=== PATIENT | male | born 1950 | race Caucasian/White ===

== ENCOUNTER → 2018-09-06 | Outpatient (CLI) | payer BC, SELFPAY ==
--- NOTE | 2018-09-06 12:31 | STEWCON_ITS ---
Reason For Study: ABN. EKG Stress Results Protocol: Abhinav Protocol WITH DEFINITY Maximum Predicted HR: 154 bpm Target HR: 131 bpm % Maximum Predicted HR: 95 % DurationHeart Rate Stage (mm:ss) (bpm) BP Comment BASELINE 97 162/801 CC DEFINITY STAGE 1 3:00 118 182/80 STAGE 2 3:00 131 210/78 STAGE 3 3:00 142 210/70 STAGE 4 1:00 146 / 1 CC DEFINITY, SLIGHT WINDED RECOVERY 104 160/100 Stress Duration: 10:00 mm:ss Maximum Stress HR: 146 bpm METS: 13 Baseline Echocardiogram Findings Stress Echo Wall motion Data Resting WM Intermediate WM Stress WM Resting Wall Motion Wall Motion Stress All segments Normal. All segments Hyperkinetic. Ejection Fraction 65 %. Ejection Fraction 75 %. Stress Results Heart rate response: Appropriate Blood pressure response: Resting hypertension-exaggerated response Arrhythmias: Isolated PVC during recovery Functional capacity: Good Stopped: Secondary to dyspnea. EKG Data The baseline ECG displays normal sinus rhythm. Peak exercise ECG with continued nonspecific ST/T wave abnormality. Symptoms with Stress No complaint of chest discomfort during exercise or recovery. Interpretation Summary Technically difficult study Contrast injection performed Secondary to technical difficulties the post stress images were not successfully captured for post stress image interpretation, however, based upon real-time visualization of the post stress images there appeared to be no obvious evidence of post stress induced regional wall motion abnormalities. Negative (Adequate) stress echocardiogram Ordering Physician: Trell Coello Referring Physician: Trell Coello Performed By: Inez Scott, MARISSA, RVT
== END | disposition home or self-care (01) ==
LOC: CVS 12:26
PROVIDERS: Family Provider Internal Medicine; PCP Internal Medicine; Referring Provider Internal Medicine; Visit Provider Internal Medicine
DX: R94.31 Abnormal electrocardiogram [ECG] [EKG] (principal)
CPT/HCPCS: 93017; 93350; Q9957; A4216; C8928

== ENCOUNTER 2020-10-03 09:24 | Emergency (ER) | payer MEDICARE, SELFPAY ==
[2020-10-03 09:25] VITALS: BP 168/90; PULSE 106; RESP 14; TEMP 36.3; O2SAT 96; BMI 24.5
--- NOTE | 2020-10-03 09:52 | VDLE_ITS ---
Reason For Study: Pain RIGHT LEFT Acute deep vein thrombosis is noted in the CFV is compressible, spontaneous, phasic, right CFV, SFJ, FV, PopV, T/P Trunk, PTV competent, and demonstrates normal prox-mid, PeroV prox-mid and Soleus veins. augmentation. Acute superficial vein thrombosis is noted in the right GSV from prox thigh to junction. PTV distal and PeroV distal are compressible. Procedure This is a venous duplex using B-mode, color flow and spectral Doppler. Exam performed portable in ED. A preliminary report was called and/or faxed to [facility]. VL/Venous Duplex US, Unilateral Interpretation Summary Acute deep venous thrombosis right common femoral, saphenofemoral junction, fem oral, popliteal, tibioperoneal trunk, posterior tibial, peroneal, proximal and mid soleus veins. Superficial thrombophlebitis right great saphenous vein extending from the prox imal thigh to the saphenofemoral junction. Normal flow patterns left common femoral vein Ordering Physician: Reynaldo Aldana Referring Physician: Trell Coello M.D. Performed By: Kiah Chávez RVT
[2020-10-03] MEDS: APIXABAN 5 MG TABLET 10 MG PO (10:45)
--- NOTE | 2020-10-03 11:13 | ED.VIS.LOWEX ---
HPI History of Present Illness Chief Complaint: Lower Extremity Injury Onset/Context/Timing Onset: Today Context: Gradual Onset Timing: Continuous Quality of Pain: - (Tightness) Location: Right lower extremity Worsened by: Nothing Relieved by: Nothing Associated Symptoms Associated Symptoms: Negative for Parasthesia, Weakness and Loss of Funtion Narrative Narrative: Patient presents with pain and swelling to his right lower extremity that began today. Patient states he felt like he pulled a muscle in his right posterior thigh today. Patient states that he noticed increasing swelling and tightness to his right lower extremity. Patient states nothing makes it better nothing makes it worse. Patient denies any paresthesias or weakness. Patient denies any trauma or injury. Patient states it feels similar to the blood clot he had in his left leg in the past. Patient is not currently on any anticoagulants. [facility] Medical History (Updated 10/03/20 @ 11:[address] Reynaldo Aldana DO) DVT (deep venous thrombosis) Home Medications oxycodone 5 mg PO Q4H PRN PRN #20 tablet 01/19/17 [Rx Last Taken Unknown] apixaban [Eliquis DVT-PE Treat 30D Start] 5 mg PO BID #74 tab 10/03/20 [Rx Last Taken Unknown] Allergy/AdvReac Type Severity Reaction Status Date / Time No Known Allergies Allergy Verified 10/03/20 09:26 Surgical History (Updated 10/03/20 @ 11:[address] Reynaldo Aldana DO) History of appendectomy Social History Smoking Status: Never smoker ROS ROS ED Constitutional Constitutional ED: Denies chills or fever(s) Eyes Eyes: Denies blurry vision or change in vision ENT ENT ED: Denies rhinorrhea or sore throat Cardiovascular Cardiovascular: Denies chest pain or palpitations Respiratory/Chest Respiratory/Chest: Denies cough or dyspnea Gastrointestinal Gastrointestinal: Denies nausea or vomiting Genitourinary Genitourinary ED: Denies dysuria or hematuria Musculoskeletal Musculoskeletal: Denies back pain or neck pain Integumentary Denies abscess or rash Neurologic Neurologic: Denies headache(s) or weakness Allergic/Immunologic Allergic/Immunologic ED: Denies mouth swelling or urticaria EXAM Physical Exam Const Vital Signs: 10/03/20 09:25 Temperature 97.4 F L Temperature Source Temporal Pulse Rate 106 H Respiratory Rate 14 Blood Pressure 168/90 H Blood Pressure Mean 116 Pulse Ox 96 Oxygen Delivery Method Room Air Positive well nourished and well developed General Appearance ED: well developed HEENT Reports moist mucous membranes Neck full ROM and supple Resp normal respiratory effort and clear to auscultation bilaterally Cardio regular rate and regular rhythm GI non-tender and non-distended Palpation: soft Extremity Extremity Narrative: There is tenderness and edema of the right thigh and lower leg. There is some mild erythema. There is no warmth. There is full range of motion. Pedal pulses are equal bilaterally. Sensation was intact to light touch in all digits. Capillary refill was less than 2 seconds in all digits. Neuro oriented x3, CN's II-XII intact bilaterally, moves all extremities and no sensory deficits noted Sensorium / Orientation: alert Motor Exam: strength 5/5 throughout Psych mental status grossly normal MDM MDM MDM Narrative Medical decision making narrative: Venous duplex of the right lower extremity was obtained. There is acute DVT in the common femoral vein, superficial femoral junction, femoral vein, popliteal vein, posterior tibial vein, peroneal vein, and soleus veins. There is superficial thrombophlebitis in the right great saphenous vein. Patient was given a dose of Eliquis here. Patient was given a prescription for Eliquis. Patient was instructed to elevate his right leg. Patient was instructed to follow-up with his primary care physician in 5 to 7 days. Patient was instructed return if any chest pain, shortness of breath, or if worse in any way. Patient understood and was agreeable with the plan. All questions were answered. Radiography Diagnostic Testing: Radiology Impression Venous Doppler Study 10/03/20 09:52 Interpretation Summary Acute deep venous thrombosis right common femoral, saphenofemoral junction, femoral, popliteal, tibioperoneal trunk, posterior tibial, peroneal, proximal and mid soleus veins. Superficial thrombophlebitis right great saphenous vein extending from the proximal thigh to the saphenofemoral junction. Normal flow patterns left common femoral vein Ordering Physician: Reynaldo Aldana Referring Physician: Trell Coello M.D. Performed By: Kiah Chávez RVT Discharge Plan Triage Chief Complaint: Lower Extremity Injury ED Provider: Reynaldo Aldana Dx/Rx/DC Orders Clinical Impression: Acute deep vein thrombosis (DVT) of right lower extremity Instructions: ED Deep Vein Thrombosis (DVT) Prescriptions: New Eliquis DVT-PE Treat 30D Start 5 mg (74 tabs) tablets,dose pack 5 mg PO BID Qty: 74 RF: 0 No Action oxycodone 5 MG tablet 5 mg PO Q4H PRN PRN (Reason: Pain) Qty: 20 RF: 0 Primary Care Provider: Trell Coello Referrals: Trell Coello MD [Primary Care Provider] - 3-5 Days Disposition Disposition: Home, Self Care
== END 2020-10-03 11:27 | disposition home or self-care (01) ==
PROVIDERS: Emergency Provider Emergency Medicine; PCP Internal Medicine
DX: I82.411 Acute embolism and thrombosis of right femoral vein (principal); I82.431 Acute embolism and thrombosis of right popliteal vein; I82.441 Acute embolism and thrombosis of right tibial vein; I82.451 Acute embolism and thrombosis of right peroneal vein; I82.461 Acute embolism and thrombosis of right calf muscular vein; Z79.01 Long term (current) use of anticoagulants; Z86.718 Personal history of other venous thrombosis and embolism
CPT/HCPCS: 93971; 99283

== ENCOUNTER 2023-01-19 15:52 | Emergency (ER) | payer MEDICARE, SELFPAY ==
[2023-01-19 15:53] VITALS: BP 191/84; PULSE 93; RESP 18; TEMP 36.7; O2SAT 99; BMI 24.1
--- NOTE | 2023-01-19 16:02 | EX.ED.GENINJ ---
HPI History of Present Illness Chief Complaint: Head Injury [facility] Medical History DVT (deep venous thrombosis) Home Medications apixaban 5 mg (74 tabs) tablets in a dose pack (Eliquis DVT-PE Treat 30D Start) 5 mg PO BID #74 tabs 10/03/20 [Rx Last Taken 01/19/23] carvedilol 6.25 mg tablet 6.25 mg PO Q12H 01/19/23 [History Last Taken 01/19/23] chlorthalidone 25 mg tablet 25 mg PO .once a day 01/19/23 [History Last Taken 01/19/23] Allergy/AdvReac Type Severity Reaction Status Date / Time No Known Allergies Allergy Verified 01/19/23 15:53 Surgical History History of appendectomy Social History Smoking Status: Never smoker EXAM Physical Exam Const Vital Signs: 01/19/23 15:53 01/19/23 16:04 Temperature 98.1 F Temperature Source Temporal Pulse Rate 93 Respiratory Rate 18 Respiratory Effort Normal Non-Labored Respiratory Depth Normal Respiratory Pattern Normal Blood Pressure 191/84 H Blood Pressure Mean 119 Pulse Ox 99 Oxygen Delivery Method Room Air Room Air MDM MDM MDM Narrative Medical decision making narrative: HISTORY OF PRESENT ILLNESS: 72-year-old male here with concern for head injury. States he was standing on brush when it gave out. States he was using a chainsaw at the time and hit him in the right side of his head. REVIEW OF SYSTEMS: Pertinent positives: Head trauma, headache, head wound Pertinent negatives: Loss of consciousness, focal weakness PHYSICAL EXAM: Nursing triage notes reviewed, Vital signs reviewed Primary Survey Airway: Intact Breathing: Bilateral breath sounds Circulation: Palpable bilateral femorals, Palpable bilateral radial, Palpable bilateral DP and Palpable bilateral PT Disability / Spine precautions GCS Score: Eye Openin Verbal Response: 5 Motor Response: 6 Secondary Survey Constitutional: Please see MDM Head: NO jaw malocclusion, linear approximately 6 cm laceration noted to the right scalp, no galeal involvement. Eye: Pupils equal round and reactive to light, Extraocular muscles intact and No periorbital ecchymosis or stepoff, no evidence of entrapment ENT: Oropharynx clear, no lacerations, no hemotympanum, no raccoon eyes or tijerina sign Cervical spine / Neck: No cervical spine bony tenderness, crepitance, or stepoff deformity Trachea midline Lungs: Clear to auscultation, No asymmetric rise and No crepitus, no flail chest Cardiac: Regular rate and rhythm and No murmurs Abdomen: Soft, Nontender and No rebound Pelvis: Pelvis stable to compression : No evidence of genital injury Back: No midline bony tenderness to thoracic/lumbar/sacral spines Neuro: At baseline, intact strength and sensation in bilateral upper and lower extremities. 2+ patellar reflexes bilaterally. Extremities: NO gross Deformities Psych: Normal affect Nursing triage notes reviewed, Vital signs reviewed MEDICAL DECISION MAKING: Chief Complaint: Head wound, head trauma External records reviewed: No recent advanced imaging of the head Factors affecting care: High blood pressure, DVT on Eliquis Social determinants of health: none History obtained from others: none Consults: none MDM Narrative: Patient was initially hypertensive otherwise hemodynamically stable, afebrile and nontoxic-appearing. Primary secondary trauma surveys are concerning for the following: I considered the following differential diagnosis: Intracranial injury, cervical spine injury, laceration There is no focal neurologic deficit present, no midline spinal tenderness, no altered level conscious, no intoxication, no distracting injury. Next criteria suggest no need for advanced imaging of the cervical spine. CT scan of the head was negative for acute intracranial bleeding. Patient's laceration was repaired. Please see below procedure note. Procedure: Laceration repair. The procedure was performed by myself. Indication: Wound repair Risks and benefits: risks, benefits and alternatives were discussed Consent: Consent was obtained. Wound Details: Wound was approximately 6 cm in length, 1 mm in depth, there is no foreign bodies or deeper structures involved, no galeal involvement Anesthesia: 1% lidocaine Wound prep: Patient was prepped and draped in the usual sterile fashion. Tetanus: updated today Irrigation Solution: Saline Wound Preparation: Topical chlorhexidine The wound was explored to its base in a bloodless field. Procedure Description: Applied 5 simple interrupted 5-0 Vicryl sutures with close approximation Patient tolerated the procedure well with no immediate complications Discussed infection precautions. The patient and/or family, caregivers express understanding. The patient and/or family, caregivers agrees with the plan. Shared decision making: I will have a discussion with the patient and or visitors regarding risk/benefits of further testing or admission. They will be made aware of of the risk/benefits inherent in this decision they will be given the opportunity to voice understanding. Total critical care time today provided was at least 0 minutes. This excludes separately billable procedures. Critical care time (if documented) is secondary to the patient having high probability of clinically significant/life threatening deterioration in the patient's condition which required my urgent intervention. Impression: 1. Traumatic brain injury 2. Head laceration Dispo: Discharge Radiography Diagnostic Testing: Clinical Impression(s) from Imaging Studies Brain CT 01/19/23 16:07 IMPRESSION: No CT evidence of acute intracranial hemorrhage or injury. Minimal senescent changes with atherosclerosis. Electronically Signed: Jack Aviles MD at 16:48 EST Reading Location ID and State: [facility] / [place] Tel , Service support , Discharge Plan Triage Chief Complaint: Head Injury ED Provider: Seth Rojo Dx/Rx/DC Orders Instructions: ED Concussion, ED Laceration Scalp Stitches or [place] Prescriptions: No Action Eliquis DVT-PE Treat 30D Start 5 mg (74 tabs) tablets,dose pack 5 mg PO BID Qty: 74 0RF Rx Instructions: Take 2 tablets twice daily for the first week then 1 tablet twice daily. carvedilol 6.25 mg tablet 6.25 mg PO Q12H chlorthalidone 25 mg tablet 25 mg PO .once a day Primary Care Provider: Trell Coello Referrals: Trell Coello MD [Primary Care Provider] - Activity Restrictions/Additional Instructions: Thank you for trusting us with your care today! Please take Tylenol (2 pills, 650 mg), ibuprofen (2 pills, 400 mg) every 6 hours as needed for pain and fever control. Please return to the emergency department if your symptoms change or worsen. Specifically if you develop redness, discharge, pain disease or signs of infection. Please use topical peroxide, Neosporin or other topical antimicrobial meant for the next 48 to 72 hours. May use soap and water afterwards. Please follow with your primary care physician for further outpatient evaluation and management. Disposition Disposition: Home, Self Care
--- NOTE | 2023-01-19 16:07 | CT_ITS ---
INDICATION: head trauma EXAMINATION: CT BRAIN - CT Head or Brain W/O Contrast Injection TECHNIQUE: Multiple axial images were obtained of the head without intravenous contrast. A radiation dose optimization technique was used for this scan. IV Contrast dosage and agent: None. COMPARISON: None FINDINGS: BRAIN PARENCHYMA: No intra- or extra-axial hemorrhage. No evidence of acute infarct. No intracranial mass or mass effect. Minimal periventricular and subcortical white matter hypodense chronic small vessel white matter ischemic change. There is preservation of the hilario/white matter interface. Posterior fossa structures are unremarkable. Bilateral carotid atherosclerosis. CSF SPACES: Cerebral volume appropriate for age. No hydrocephalus. Basal cisterns are patent. CALVARIUM, SKULL BASE, PARANASAL SINUSES AND MASTOID AIR CELLS: No acute osseous finding. [place]al sinuses are clear. Mastoid air cells are clear. ORBITS: Both globes, extraocular muscles, optic nerves and retrobulbar fat appear unremarkable. ASPECTS Score for Acute Strokes: 10 CT/Brain/Head without Contrast IMPRESSION: No CT evidence of acute intracranial hemorrhage or injury. Minimal senescent changes with atherosclerosis. Electronically Signed: Jack Aviles MD at 16:48 EST Reading Location ID and State: [facility] / [place] Tel , Service support ,
[2023-01-19] MEDS: Diphth,Pertuss(Acell),Tet Vac 0.5 ML Vial IM (16:27)
[2023-01-19] MEDS: Lidocaine 1% (20 ml mdv) 20 ML Vial 5 ML INFILT (16:27)
[2023-01-19 17:08] VITALS: BP 163/90; PULSE 80; RESP 16
== END 2023-01-19 17:18 | disposition home or self-care (01) ==
PROVIDERS: Emergency Provider Emergency Medicine; PCP Internal Medicine; Visit Provider Emergency Medicine
DX: S06.9X0A Unspecified intracranial injury without loss of consciousness, initial encounter (principal); S01.01XA Laceration without foreign body of scalp, initial encounter; Z23 Encounter for immunization; W17.89XA Other fall from one level to another, initial encounter; I10 Essential (primary) hypertension; Z79.01 Long term (current) use of anticoagulants; Z79.899 Other long term (current) drug therapy
CPT/HCPCS: 12002; 70450; 90715; 99282